=== PATIENT | female | born 1945 | race Caucasian/White ===

== ENCOUNTER 2021-07-03 13:18 | Inpatient (IN) | payer MEDICARE, BC ==
[~2021-07-03] VITALS: Ht 160 cm; Wt 51.7 kg
[2021-07-03 16:20] VITALS: BP 109/72
[2021-07-03] MEDS ORDERED: ACETAMINOPHEN 325 MG TABLET PO PRN (20:15)
[2021-07-03] MEDS: CycloSPORINE 0.05% 0.4 ML OPHTHALMIC EMULSION OU SCH ×2 (21:00→21:26)
[2021-07-03] MEDS: ETHYL ALCOHOL 62% ANTISEPTIC NASAL INHALANT 0.6 ML AMPUL NASAL SCH ×2 (21:00→21:27)
[2021-07-03] MEDS: SENNA 187 MG TABLET PO SCH (21:25)
[2021-07-03] MEDS: HYPROMELLOSE 0.5% 15 ML OPHTHALMIC SOLUTION OU SCH (21:25)
[2021-07-03] MEDS: DOCUSATE SODIUM 100 MG CAPSULE PO SCH (21:26)
[2021-07-03] MEDS: DOXEPIN HCL 10 MG CAPSULE PO SCH (21:26)
[2021-07-03] MEDS: LOVASTATIN 20 MG TABLET PO SCH (21:27)
[2021-07-04 01:37] VITALS: BP 122/67
[2021-07-04] MEDS: HYPROMELLOSE 0.5% 15 ML OPHTHALMIC SOLUTION OU SCH ×10 (03:00→21:43)
[2021-07-04] MEDS: LEVOTHYROXINE SODIUM 88 MCG TABLET PO SCH (06:26)
[2021-07-04] MEDS: MINOCYCLINE HCL 100 MG CAPSULE PO SCH ×2 (07:11→17:32)
[2021-07-04 07:21] LABS: BASOPHILS % (AUTO) 0.4 % (0.0-2.0); EOSINOPHILS % (AUTO) 5.1 % (1.0-6.0); HEMATOCRIT 37.7 % (36-46); HEMOGLOBIN 12.8 g/dL (12.0-16.0); LYMPHOCYTES # (AUTO) 1.7 K/uL (1.0-4.8); LYMPHOCYTES % (AUTO) 19.4 % (22.0-44.0); MEAN CORPUSCULAR HEMOGLOBIN 30.6 pg (26.0-34.0); MEAN CORPUSCULAR HGB CONC 33.9 G/dL (31.0-37.0); MEAN CORPUSCULAR VOLUME 90 fL (80-100); MONOCYTES # (AUTO) 0.6 K/uL (0.1-1.0); MONOCYTES % (AUTO) 6.2 % (2.0-9.0); NEUTROPHILS # (AUTO) 6.1 K/uL (1.8-7.7); NEUTROPHILS % (AUTO) 68.9 % (40.0-70.0); PLATELET COUNT (AUTO) 236 K/uL (150-450); RED BLOOD CELL COUNT(AUTO) 4.18 MIL/uL (4.00-5.20); RED CELL DISTRIBUTION WIDTH 13.2 % (11.5-14.5)
[2021-07-04 07:27] LABS: ALANINE AMINOTRANSFERASE 145 U/L (12-78); ALBUMIN 2.7 g/dL (3.4-5.0); ALKALINE PHOSPHATASE 113 U/L (46-116); ANION GAP 3 mmol/L (8-16); ASPARTATE AMINOTRANSFERASE 94 U/L (15-37); BILIRUBIN,TOTAL 0.3 mg/dL (0.1-1.0); CALCIUM, TOTAL 8.9 mg/dL (8.8-10.5); CARBON DIOXIDE 33 mmol/L (22-29); CHLORIDE 101 mmol/L (98-107); CREATININE 0.61 mg/dL (0.60-1.30); GLUCOSE,RANDOM 103 mg/dL (70-110); POTASSIUM 3.9 mmol/L (3.5-5.1); SODIUM SERUM 137 mmol/L (136-145); TOTAL PROTEIN, SERUM 6.2 g/dL (6.4-8.2); UREA NITROGEN, BLOOD 8 mg/dL (7-18)
[2021-07-04 07:36] LABS: GLOMERULAR FILTR. RATE CALC > 60 mL/min (>60)
[2021-07-04 08:05] VITALS: BP 143/61
[2021-07-04] MEDS: DOCUSATE SODIUM 100 MG CAPSULE PO SCH ×2 (08:50→19:01)
[2021-07-04] MEDS: ASCORBIC ACID 500 MG TABLET PO SCH (08:50)
[2021-07-04] MEDS: CALCIUM CIT/VITAMIN D3 200 MG-250 UNITS TABLET PO SCH (08:50)
[2021-07-04] MEDS: LISINOPRIL 10 MG TABLET PO SCH (08:51)
[2021-07-04] MEDS: ETHYL ALCOHOL 62% ANTISEPTIC NASAL INHALANT 0.6 ML AMPUL NASAL SCH ×3 (08:51→19:23)
[2021-07-04] MEDS: RIVAROXABAN 20 MG TABLET PO SCH (08:51)
[2021-07-04] MEDS: MULTIVITAMINS WITH MINERALS, THERAPEUTIC TABLET PO SCH (08:51)
[2021-07-04] MEDS ORDERED: CycloSPORINE 0.05% 0.4 ML OPHTHALMIC EMULSION OU SCH (09:00)
[2021-07-04] MEDS ORDERED: FEXOFENADINE HCL 60 MG TABLET PO SCH (09:00)
[2021-07-04] MEDS ORDERED: OMEGA-3/DHA/EPA/FISH OIL 1,000 MG CAPSULE PO SCH (09:00)
[2021-07-04] MEDS: ESCITALOPRAM OXALATE 10 MG TABLET PO SCH (12:20)
[2021-07-04 15:49] VITALS: BP 153/75
[2021-07-04] MEDS: DOXEPIN HCL 10 MG CAPSULE PO SCH (19:01)
[2021-07-04] MEDS: CycloSPORINE 0.05% 0.4 ML OPHTHALMIC EMULSION OU SCH (19:01)
[2021-07-04] MEDS: TAMSULOSIN HCL 0.4 MG CAPSULE PO SCH (19:01)
[2021-07-04] MEDS: SENNA 187 MG TABLET PO SCH (19:01)
[2021-07-04] MEDS: LOVASTATIN 20 MG TABLET PO SCH (19:01)
[2021-07-04] MEDS: MELATONIN 3 MG TABLET PO PRN (21:43)
[2021-07-05] MEDS: HYPROMELLOSE 0.5% 15 ML OPHTHALMIC SOLUTION OU SCH ×11 (03:00→21:00)
[2021-07-05] MEDS ORDERED: MINO100C66 PO (03:15)
[2021-07-05] MEDS ORDERED: LOVA20TA73 PO (03:15)
[2021-07-05] MEDS ORDERED: LEVO88TA4 PO (03:15)
[2021-07-05] MEDS ORDERED: DOXE10 PO (03:15)
[2021-07-05] MEDS ORDERED: CYCL05OE OU (03:15)
[2021-07-05 03:43] VITALS: BP 130/67
[2021-07-05] MEDS: LEVOTHYROXINE SODIUM 88 MCG TABLET PO SCH (06:10)
[2021-07-05 08:15] VITALS: BP 113/57
[2021-07-05] MEDS: ETHYL ALCOHOL 62% ANTISEPTIC NASAL INHALANT 0.6 ML AMPUL NASAL SCH ×2 (08:23→20:40)
[2021-07-05] MEDS: LISINOPRIL 10 MG TABLET PO SCH (08:24)
[2021-07-05] MEDS: MINOCYCLINE HCL 100 MG CAPSULE PO SCH ×2 (08:24→18:45)
[2021-07-05] MEDS: RIVAROXABAN 20 MG TABLET PO SCH (08:24)
[2021-07-05] MEDS: ASCORBIC ACID 500 MG TABLET PO SCH (08:24)
[2021-07-05] MEDS: CALCIUM CIT/VITAMIN D3 200 MG-250 UNITS TABLET PO SCH (08:24)
[2021-07-05] MEDS: DOCUSATE SODIUM 100 MG CAPSULE PO SCH ×3 (08:25→21:00)
[2021-07-05] MEDS: ESCITALOPRAM OXALATE 10 MG TABLET PO SCH (08:25)
[2021-07-05] MEDS: MULTIVITAMINS WITH MINERALS, THERAPEUTIC TABLET PO SCH (08:25)
[2021-07-05] MEDS: FEXOFENADINE HCL 60 MG TABLET PO SCH ×3 (08:39→21:00)
[2021-07-05] MEDS: FAMOTIDINE 20 MG TABLET PO SCH ×3 (09:37→21:00)
[2021-07-05 16:53] VITALS: BP 129/63
[2021-07-05] MEDS: MELATONIN 3 MG TABLET PO PRN (20:40)
[2021-07-05] MEDS: SENNA 187 MG TABLET PO SCH ×2 (20:40→21:00)
[2021-07-05] MEDS: TAMSULOSIN HCL 0.4 MG CAPSULE PO SCH (20:40)
[2021-07-05] MEDS: DOXEPIN HCL 10 MG CAPSULE PO SCH ×2 (20:41→21:00)
[2021-07-05] MEDS: LOVASTATIN 20 MG TABLET PO SCH (20:41)
[2021-07-05] MEDS: CycloSPORINE 0.05% 0.4 ML OPHTHALMIC EMULSION OU SCH (21:00)
[2021-07-06 03:30] VITALS: BP 131/57
[2021-07-06] MEDS: HYPROMELLOSE 0.5% 15 ML OPHTHALMIC SOLUTION OU SCH ×5 (03:31→13:20)
[2021-07-06] MEDS: LEVOTHYROXINE SODIUM 88 MCG TABLET PO SCH (05:37)
[2021-07-06 08:30] VITALS: BP 124/68
[2021-07-06] MEDS: ETHYL ALCOHOL 62% ANTISEPTIC NASAL INHALANT 0.6 ML AMPUL NASAL SCH ×2 (09:04→18:35)
[2021-07-06] MEDS: ASCORBIC ACID 500 MG TABLET PO SCH (09:05)
[2021-07-06] MEDS: CALCIUM CIT/VITAMIN D3 200 MG-250 UNITS TABLET PO SCH (09:05)
[2021-07-06] MEDS: LISINOPRIL 10 MG TABLET PO SCH (09:05)
[2021-07-06] MEDS: DOCUSATE SODIUM 100 MG CAPSULE PO SCH ×2 (09:05→18:37)
[2021-07-06] MEDS: FEXOFENADINE HCL 60 MG TABLET PO SCH ×2 (09:05→18:36)
[2021-07-06] MEDS: MULTIVITAMINS WITH MINERALS, THERAPEUTIC TABLET PO SCH (09:05)
[2021-07-06] MEDS: MINOCYCLINE HCL 100 MG CAPSULE PO SCH ×2 (09:05→16:25)
[2021-07-06] MEDS: ESCITALOPRAM OXALATE 10 MG TABLET PO SCH (09:06)
[2021-07-06] MEDS: FAMOTIDINE 20 MG TABLET PO SCH ×2 (09:06→18:36)
[2021-07-06] MEDS: RIVAROXABAN 20 MG TABLET PO SCH (10:09)
[2021-07-06] MEDS ORDERED: *PATIENT'S OWN MED [ENTER DRUG, DOSE, FREQUENCY IN COMMENTS] CLINICAL ONE (14:00)
[2021-07-06] MEDS: [UNRECOGNIZED DRUG - OTHER] OU SCH ×2 (16:24→21:30)
[2021-07-06 16:30] VITALS: BP 116/69
[2021-07-06 18:13] LABS: APPEARANCE,URINE CLEAR (CLEAR); BILIRUBIN,URINE NEGATIVE (NEGATIVE); GLUCOSE, URINE (UA) NEGATIVE (NEGATIVE); KETONES,URINE NEGATIVE (NEGATIVE); LEUKOCYTE ESTERASE ,URINE MODERATE (NEGATIVE); NITRATE,URINE NEGATIVE (NEGATIVE); OCCULT BLOOD,URINE SMALL (NEGATIVE); PROTEIN,URINE NEGATIVE (NEGATIVE); UROBILINOGEN,URINE 0.2 mg/dL (<=1.0)
[2021-07-06 18:26] LABS: BACTERIA,URINE None Seen /HPF (None Seen); SQUAMOUS EPITHELIAL CELL,UR Few /LPF (None Seen)
[2021-07-06] MEDS: LOVASTATIN 20 MG TABLET PO SCH (18:36)
[2021-07-06] MEDS: TAMSULOSIN HCL 0.4 MG CAPSULE PO SCH (18:36)
[2021-07-06] MEDS: SENNA 187 MG TABLET PO SCH (18:37)
[2021-07-06] MEDS: CycloSPORINE 0.05% 0.4 ML OPHTHALMIC EMULSION OU SCH (18:49)
[2021-07-06] MEDS: TraZODone HCL 50 MG TABLET PO SCH (21:29)
[2021-07-07] VITALS: BP 149/66
[2021-07-07] MEDS: LEVOTHYROXINE SODIUM 88 MCG TABLET PO SCH (06:17)
[2021-07-07] MEDS: LISINOPRIL 10 MG TABLET PO SCH (08:09)
[2021-07-07] MEDS: DOCUSATE SODIUM 100 MG CAPSULE PO SCH ×2 (08:09→19:12)
[2021-07-07] MEDS: ASCORBIC ACID 500 MG TABLET PO SCH (08:09)
[2021-07-07] MEDS: CALCIUM CIT/VITAMIN D3 200 MG-250 UNITS TABLET PO SCH (08:09)
[2021-07-07] MEDS: FAMOTIDINE 20 MG TABLET PO SCH ×2 (08:10→19:20)
[2021-07-07] MEDS: MINOCYCLINE HCL 100 MG CAPSULE PO SCH ×2 (08:10→16:55)
[2021-07-07] MEDS: MULTIVITAMINS WITH MINERALS, THERAPEUTIC TABLET PO SCH (08:10)
[2021-07-07] MEDS: FEXOFENADINE HCL 60 MG TABLET PO SCH ×2 (08:11→19:21)
[2021-07-07] MEDS: RIVAROXABAN 20 MG TABLET PO SCH (08:11)
[2021-07-07] MEDS: ESCITALOPRAM OXALATE 10 MG TABLET PO SCH (08:11)
[2021-07-07] MEDS: ETHYL ALCOHOL 62% ANTISEPTIC NASAL INHALANT 0.6 ML AMPUL NASAL SCH ×2 (08:12→19:22)
[2021-07-07] MEDS: [UNRECOGNIZED DRUG - OTHER] OU SCH ×5 (08:21→19:12)
[2021-07-07 09:11] VITALS: BP 152/76
[2021-07-07 11:09] VITALS: BP 124/74
[2021-07-07 16:03] VITALS: BP 144/86
[2021-07-07] MEDS: LOVASTATIN 20 MG TABLET PO SCH (19:12)
[2021-07-07] MEDS: TraZODone HCL 50 MG TABLET PO SCH (19:13)
[2021-07-07] MEDS: TAMSULOSIN HCL 0.4 MG CAPSULE PO SCH (19:13)
[2021-07-07] MEDS: SENNA 187 MG TABLET PO SCH (19:13)
[2021-07-07] MEDS: CycloSPORINE 0.05% 0.4 ML OPHTHALMIC EMULSION OU SCH (19:21)
[2021-07-08] MEDS: LEVOTHYROXINE SODIUM 88 MCG TABLET PO SCH (06:14)
[2021-07-08 06:31] VITALS: BP 130/62
[2021-07-08 08:15] VITALS: BP 117/60
[2021-07-08] MEDS: MINOCYCLINE HCL 100 MG CAPSULE PO SCH ×2 (08:38→19:17)
[2021-07-08] MEDS: FEXOFENADINE HCL 60 MG TABLET PO SCH ×2 (08:39→20:24)
[2021-07-08] MEDS: ETHYL ALCOHOL 62% ANTISEPTIC NASAL INHALANT 0.6 ML AMPUL NASAL SCH ×2 (08:39→20:24)
[2021-07-08] MEDS: CALCIUM CIT/VITAMIN D3 200 MG-250 UNITS TABLET PO SCH (08:40)
[2021-07-08] MEDS: DOCUSATE SODIUM 100 MG CAPSULE PO SCH ×2 (08:41→20:24)
[2021-07-08] MEDS: ESCITALOPRAM OXALATE 10 MG TABLET PO SCH (08:43)
[2021-07-08] MEDS: FAMOTIDINE 20 MG TABLET PO SCH ×2 (08:44→19:17)
[2021-07-08] MEDS: MULTIVITAMINS WITH MINERALS, THERAPEUTIC TABLET PO SCH (08:45)
[2021-07-08] MEDS: ASCORBIC ACID 500 MG TABLET PO SCH (08:47)
[2021-07-08] MEDS: RIVAROXABAN 20 MG TABLET PO SCH (08:50)
[2021-07-08] MEDS: LISINOPRIL 10 MG TABLET PO SCH ×2 (08:51→09:00)
[2021-07-08] MEDS: [UNRECOGNIZED DRUG - OTHER] OU SCH ×4 (09:55→20:24)
[2021-07-08] MEDS: SENNA 187 MG TABLET PO SCH (19:16)
[2021-07-08] MEDS: TAMSULOSIN HCL 0.4 MG CAPSULE PO SCH (19:17)
[2021-07-08] MEDS: TraZODone HCL 50 MG TABLET PO SCH (19:17)
[2021-07-08] MEDS: LOVASTATIN 20 MG TABLET PO SCH (19:17)
[2021-07-08 19:20] VITALS: BP 125/56
[2021-07-08] MEDS: CycloSPORINE 0.05% 0.4 ML OPHTHALMIC EMULSION OU SCH (19:20)
[2021-07-09] VITALS: BP 127/70
[2021-07-09] MEDS: LEVOTHYROXINE SODIUM 88 MCG TABLET PO SCH (06:02)
[2021-07-09 08:12] VITALS: BP 123/55
[2021-07-09] MEDS: FAMOTIDINE 20 MG TABLET PO SCH ×2 (08:28→19:27)
[2021-07-09] MEDS: ESCITALOPRAM OXALATE 10 MG TABLET PO SCH (08:28)
[2021-07-09] MEDS: MINOCYCLINE HCL 100 MG CAPSULE PO SCH ×2 (08:28→18:01)
[2021-07-09] MEDS: LISINOPRIL 10 MG TABLET PO SCH (08:28)
[2021-07-09] MEDS: FEXOFENADINE HCL 60 MG TABLET PO SCH ×2 (08:29→19:18)
[2021-07-09] MEDS: RIVAROXABAN 20 MG TABLET PO SCH (08:29)
[2021-07-09] MEDS: CALCIUM CIT/VITAMIN D3 200 MG-250 UNITS TABLET PO SCH (08:35)
[2021-07-09] MEDS: MULTIVITAMINS WITH MINERALS, THERAPEUTIC TABLET PO SCH (08:35)
[2021-07-09] MEDS: DOCUSATE SODIUM 100 MG CAPSULE PO SCH ×2 (08:35→19:18)
[2021-07-09] MEDS: ASCORBIC ACID 500 MG TABLET PO SCH (08:38)
[2021-07-09] MEDS: [UNRECOGNIZED DRUG - OTHER] OU SCH ×4 (08:39→19:18)
[2021-07-09] MEDS: ETHYL ALCOHOL 62% ANTISEPTIC NASAL INHALANT 0.6 ML AMPUL NASAL SCH ×2 (08:44→20:27)
[2021-07-09] MEDS: NYSTATIN 500,000 UNITS/5 ML SUSPENSION UDCUP PO SCH (14:58)
[2021-07-09 15:00] VITALS: BP 105/61
[2021-07-09] MEDS: LOVASTATIN 20 MG TABLET PO SCH (19:16)
[2021-07-09] MEDS: TAMSULOSIN HCL 0.4 MG CAPSULE PO SCH (19:16)
[2021-07-09] MEDS: TraZODone HCL 50 MG TABLET PO SCH (19:17)
[2021-07-09] MEDS: SENNA 187 MG TABLET PO SCH (19:18)
[2021-07-09] MEDS: CycloSPORINE 0.05% 0.4 ML OPHTHALMIC EMULSION OU SCH (20:27)
[2021-07-10 06:12] VITALS: BP 143/57
[2021-07-10] MEDS: LEVOTHYROXINE SODIUM 88 MCG TABLET PO SCH (06:27)
[2021-07-10 08:00] VITALS: BP 128/58
[2021-07-10 08:14] LABS: ANION GAP 2 mmol/L (8-16); CALCIUM, TOTAL 9.2 mg/dL (8.8-10.5); CARBON DIOXIDE 34 mmol/L (22-29); CHLORIDE 99 mmol/L (98-107); CREATININE 0.65 mg/dL (0.60-1.30); GLOMERULAR FILTR. RATE CALC > 60 mL/min (>60); GLUCOSE,RANDOM 107 mg/dL (70-110); POTASSIUM 4.4 mmol/L (3.5-5.1); SODIUM SERUM 135 mmol/L (136-145); UREA NITROGEN, BLOOD 13 mg/dL (7-18)
[2021-07-10] MEDS ORDERED: BISACODYL 5 MG EC TABLET PO PRN (08:30)
[2021-07-10] MEDS: FEXOFENADINE HCL 60 MG TABLET PO SCH ×2 (08:59→19:32)
[2021-07-10] MEDS: RIVAROXABAN 20 MG TABLET PO SCH (09:00)
[2021-07-10] MEDS: NYSTATIN 500,000 UNITS/5 ML SUSPENSION UDCUP PO SCH ×3 (09:00→16:31)
[2021-07-10] MEDS: CALCIUM CIT/VITAMIN D3 200 MG-250 UNITS TABLET PO SCH (09:00)
[2021-07-10] MEDS: ASCORBIC ACID 500 MG TABLET PO SCH (09:00)
[2021-07-10] MEDS: ESCITALOPRAM OXALATE 10 MG TABLET PO SCH (09:00)
[2021-07-10] MEDS: DOCUSATE SODIUM 250 MG CAPSULE PO SCH ×2 (09:00→19:32)
[2021-07-10] MEDS: TAMSULOSIN HCL 0.4 MG CAPSULE PO SCH ×2 (09:01→19:32)
[2021-07-10] MEDS: MINOCYCLINE HCL 100 MG CAPSULE PO SCH ×2 (09:01→16:30)
[2021-07-10] MEDS: FAMOTIDINE 20 MG TABLET PO SCH ×2 (09:01→19:32)
[2021-07-10] MEDS: LISINOPRIL 10 MG TABLET PO SCH (09:01)
[2021-07-10] MEDS: MULTIVITAMINS WITH MINERALS, THERAPEUTIC TABLET PO SCH (09:01)
[2021-07-10] MEDS: ETHYL ALCOHOL 62% ANTISEPTIC NASAL INHALANT 0.6 ML AMPUL NASAL SCH ×2 (09:02→19:33)
[2021-07-10] MEDS: [UNRECOGNIZED DRUG - OTHER] OU SCH ×5 (09:02→19:33)
[2021-07-10 16:30] VITALS: BP 124/61
[2021-07-10] MEDS: MAGNESIUM HYDROXIDE SUSPENSION 30 ML UDCUP PO PRN (16:31)
[2021-07-10] MEDS: CycloSPORINE 0.05% 0.4 ML OPHTHALMIC EMULSION OU SCH (19:32)
[2021-07-10] MEDS: TraZODone HCL 50 MG TABLET PO SCH (19:32)
[2021-07-10] MEDS: SENNA 187 MG TABLET PO SCH (19:32)
[2021-07-10] MEDS: LOVASTATIN 20 MG TABLET PO SCH (19:32)
[2021-07-11] MEDS: LEVOTHYROXINE SODIUM 88 MCG TABLET PO SCH (06:03)
[2021-07-11 06:17] VITALS: BP 125/68
[2021-07-11 08:15] VITALS: BP 137/50
[2021-07-11] MEDS: MINOCYCLINE HCL 100 MG CAPSULE PO SCH ×2 (08:41→16:20)
[2021-07-11] MEDS: FEXOFENADINE HCL 60 MG TABLET PO SCH ×2 (08:42→19:00)
[2021-07-11] MEDS: RIVAROXABAN 20 MG TABLET PO SCH (08:42)
[2021-07-11] MEDS: ESCITALOPRAM OXALATE 10 MG TABLET PO SCH (08:43)
[2021-07-11] MEDS: [UNRECOGNIZED DRUG - OTHER] OU SCH ×4 (08:43→19:52)
[2021-07-11] MEDS: FAMOTIDINE 20 MG TABLET PO SCH ×2 (08:44→19:00)
[2021-07-11] MEDS: TAMSULOSIN HCL 0.4 MG CAPSULE PO SCH ×2 (08:44→19:00)
[2021-07-11] MEDS: CALCIUM CIT/VITAMIN D3 200 MG-250 UNITS TABLET PO SCH (08:45)
[2021-07-11] MEDS: LISINOPRIL 10 MG TABLET PO SCH (08:45)
[2021-07-11] MEDS: MULTIVITAMINS WITH MINERALS, THERAPEUTIC TABLET PO SCH (08:45)
[2021-07-11] MEDS: DOCUSATE SODIUM 250 MG CAPSULE PO SCH ×2 (08:46→19:00)
[2021-07-11] MEDS: NYSTATIN 500,000 UNITS/5 ML SUSPENSION UDCUP PO SCH ×3 (08:47→16:12)
[2021-07-11] MEDS: ASCORBIC ACID 500 MG TABLET PO SCH (09:21)
[2021-07-11] MEDS: ETHYL ALCOHOL 62% ANTISEPTIC NASAL INHALANT 0.6 ML AMPUL NASAL SCH ×2 (09:21→19:01)
[2021-07-11] MEDS ORDERED: GADOTERATE MEGLUMINE 10 MMOL/20 ML VIAL IVP ONE (15:50)
[2021-07-11 15:51] VITALS: BP 90/52
[2021-07-11] MEDS: MAGNESIUM HYDROXIDE SUSPENSION 30 ML UDCUP PO PRN (17:46)
[2021-07-11] MEDS: LOVASTATIN 20 MG TABLET PO SCH (19:00)
[2021-07-11] MEDS: SENNA 187 MG TABLET PO SCH (19:00)
[2021-07-11] MEDS: CycloSPORINE 0.05% 0.4 ML OPHTHALMIC EMULSION OU SCH (19:06)
[2021-07-11] MEDS ORDERED: TraZODone HCL 50 MG TABLET PO SCH (21:00)
[2021-07-12] VITALS: BP 106/54
[2021-07-12] MEDS: NYSTATIN 500,000 UNITS/5 ML SUSPENSION UDCUP PO SCH ×4 (00:14→23:05)
[2021-07-12] MEDS: LEVOTHYROXINE SODIUM 88 MCG TABLET PO SCH (05:43)
[2021-07-12] MEDS: FEXOFENADINE HCL 60 MG TABLET PO SCH (07:34)
[2021-07-12] MEDS: LISINOPRIL 10 MG TABLET PO SCH (07:34)
[2021-07-12] MEDS: DOCUSATE SODIUM 250 MG CAPSULE PO SCH ×2 (07:34→21:00)
[2021-07-12] MEDS: CALCIUM CIT/VITAMIN D3 200 MG-250 UNITS TABLET PO SCH (07:35)
[2021-07-12] MEDS: FAMOTIDINE 20 MG TABLET PO SCH ×2 (07:35→21:55)
[2021-07-12] MEDS: ESCITALOPRAM OXALATE 10 MG TABLET PO SCH (07:35)
[2021-07-12] MEDS: ASCORBIC ACID 500 MG TABLET PO SCH (07:35)
[2021-07-12] MEDS: TAMSULOSIN HCL 0.4 MG CAPSULE PO SCH ×2 (07:35→21:55)
[2021-07-12] MEDS: MULTIVITAMINS WITH MINERALS, THERAPEUTIC TABLET PO SCH (07:35)
[2021-07-12] MEDS: [UNRECOGNIZED DRUG - OTHER] OU SCH ×4 (07:36→22:16)
[2021-07-12] MEDS: MINOCYCLINE HCL 100 MG CAPSULE PO SCH ×2 (07:36→17:56)
[2021-07-12] MEDS: ETHYL ALCOHOL 62% ANTISEPTIC NASAL INHALANT 0.6 ML AMPUL NASAL SCH ×2 (07:36→21:00)
[2021-07-12] MEDS: RIVAROXABAN 20 MG TABLET PO SCH (07:36)
[2021-07-12] MEDS: 0.9% SODIUM CHLORIDE 10 ML SYRINGE IVP SCH ×3 (07:42→23:05)
[2021-07-12 08:12] VITALS: BP 113/56
[2021-07-12] MEDS: MODAFINIL 100 MG TABLET PO SCH (10:12)
[2021-07-12 11:00] VITALS: BP_SYST 85; BP_SYST 92; BP_DIAS 46
[2021-07-12] MEDS ORDERED: SODIUM CHLORIDE 0.9% 1,000 ML IV ONE (11:15)
[2021-07-12 11:55] LABS: BASOPHILS % (AUTO) 0.8 % (0.0-2.0); EOSINOPHILS % (AUTO) 4.7 % (1.0-6.0); HEMATOCRIT 36.8 % (36-46); HEMOGLOBIN 12.4 g/dL (12.0-16.0); LYMPHOCYTES # (AUTO) 1.6 K/uL (1.0-4.8); LYMPHOCYTES % (AUTO) 35.7 % (22.0-44.0); MEAN CORPUSCULAR HEMOGLOBIN 30.4 pg (26.0-34.0); MEAN CORPUSCULAR HGB CONC 33.6 G/dL (31.0-37.0); MEAN CORPUSCULAR VOLUME 91 fL (80-100); MONOCYTES # (AUTO) 0.4 K/uL (0.1-1.0); NEUTROPHILS # (AUTO) 2.2 K/uL (1.8-7.7); NEUTROPHILS % (AUTO) 49.8 % (40.0-70.0); PLATELET COUNT (AUTO) 310 K/uL (150-450); RED BLOOD CELL COUNT(AUTO) 4.07 MIL/uL (4.00-5.20); RED CELL DISTRIBUTION WIDTH 13.2 % (11.5-14.5)
[2021-07-12 12:00] VITALS: BP 126/61
[2021-07-12 12:01] LABS: ANION GAP 8 mmol/L (8-16); CALCIUM, TOTAL 9.1 mg/dL (8.8-10.5); CARBON DIOXIDE 31 mmol/L (22-29); CHLORIDE 99 mmol/L (98-107); GLUCOSE,RANDOM 109 mg/dL (70-110); POTASSIUM 4.3 mmol/L (3.5-5.1); SODIUM SERUM 138 mmol/L (136-145); UREA NITROGEN, BLOOD 17 mg/dL (7-18)
[2021-07-12 12:02] LABS: GLOMERULAR FILTR. RATE CALC > 60 mL/min (>60)
[2021-07-12] MEDS ORDERED: LACTULOSE 20 GM/30 ML SOLUTION UDCUP PO PRN (12:30)
[2021-07-12 16:08] VITALS: BP 106/61
[2021-07-12] MEDS: DOCUSATE SODIUM 283 MG/5 ML MINI-ENEMA PR PRN (19:17)
[2021-07-12] MEDS: CycloSPORINE 0.05% 0.4 ML OPHTHALMIC EMULSION OU SCH ×2 (21:00→22:42)
[2021-07-12] MEDS: SENNA 187 MG TABLET PO SCH (21:00)
[2021-07-12] MEDS: LOVASTATIN 20 MG TABLET PO SCH (21:00)
[2021-07-13] VITALS: BP 141/69
[2021-07-13] MEDS: LEVOTHYROXINE SODIUM 88 MCG TABLET PO SCH (06:02)
[2021-07-13] MEDS: CALCIUM CIT/VITAMIN D3 200 MG-250 UNITS TABLET PO SCH (08:36)
[2021-07-13] MEDS: MINOCYCLINE HCL 100 MG CAPSULE PO SCH ×2 (08:36→22:09)
[2021-07-13] MEDS: NYSTATIN 500,000 UNITS/5 ML SUSPENSION UDCUP PO SCH ×2 (08:36→16:26)
[2021-07-13] MEDS: [UNRECOGNIZED DRUG - OTHER] OU SCH ×4 (08:37→22:10)
[2021-07-13] MEDS: DOCUSATE SODIUM 250 MG CAPSULE PO SCH (08:37)
[2021-07-13] MEDS: RIVAROXABAN 20 MG TABLET PO SCH (08:37)
[2021-07-13] MEDS: FAMOTIDINE 20 MG TABLET PO SCH (08:37)
[2021-07-13] MEDS: MULTIVITAMINS WITH MINERALS, THERAPEUTIC TABLET PO SCH (08:37)
[2021-07-13] MEDS: TAMSULOSIN HCL 0.4 MG CAPSULE PO SCH (08:38)
[2021-07-13] MEDS: ASCORBIC ACID 500 MG TABLET PO SCH (08:38)
[2021-07-13] MEDS: ETHYL ALCOHOL 62% ANTISEPTIC NASAL INHALANT 0.6 ML AMPUL NASAL SCH ×2 (08:38→21:00)
[2021-07-13] MEDS: 0.9% SODIUM CHLORIDE 10 ML SYRINGE IVP SCH ×2 (08:39→16:28)
[2021-07-13] MEDS: MODAFINIL 100 MG TABLET PO SCH (08:41)
[2021-07-13 09:41] VITALS: BP 125/60
[2021-07-13 12:24] LABS: BASOPHILS % (AUTO) 0.5 % (0.0-2.0); EOSINOPHILS % (AUTO) 1.7 % (1.0-6.0); HEMATOCRIT 38.7 % (36-46); HEMOGLOBIN 13.1 g/dL (12.0-16.0); LYMPHOCYTES # (AUTO) 1.7 K/uL (1.0-4.8); LYMPHOCYTES % (AUTO) 21.7 % (22.0-44.0); MEAN CORPUSCULAR HEMOGLOBIN 30.7 pg (26.0-34.0); MEAN CORPUSCULAR HGB CONC 33.9 G/dL (31.0-37.0); MEAN CORPUSCULAR VOLUME 90 fL (80-100); MONOCYTES # (AUTO) 0.5 K/uL (0.1-1.0); MONOCYTES % (AUTO) 6.1 % (2.0-9.0); NEUTROPHILS # (AUTO) 5.3 K/uL (1.8-7.7); PLATELET COUNT (AUTO) 326 K/uL (150-450); RED BLOOD CELL COUNT(AUTO) 4.28 MIL/uL (4.00-5.20); RED CELL DISTRIBUTION WIDTH 13.1 % (11.5-14.5)
[2021-07-13 12:44] LABS: ANION GAP 9 mmol/L (8-16); CALCIUM, TOTAL 9.3 mg/dL (8.8-10.5); CARBON DIOXIDE 30 mmol/L (22-29); CHLORIDE 99 mmol/L (98-107); GLOMERULAR FILTR. RATE CALC > 60 mL/min (>60); GLUCOSE,RANDOM 100 mg/dL (70-110); POTASSIUM 4.1 mmol/L (3.5-5.1); SODIUM SERUM 138 mmol/L (136-145); UREA NITROGEN, BLOOD 13 mg/dL (7-18)
[2021-07-13] MEDS ORDERED: LACTULOSE 20 GM/30 ML SOLUTION UDCUP NG PRN (12:45)
[2021-07-13 15:57] VITALS: BP 144/68
[2021-07-13] MEDS: THIAMINE 500 MG in SODIUM CHLORIDE 0.9% 100 ML IV SCH (17:21)
[2021-07-13] MEDS ORDERED: SODIUM CHLORIDE 0.9% 100 ML ONE (17:22)
[2021-07-13 19:11] LABS: GLUCOMETER DEV NAME(LOC) 2WR.2B; GLUCOSE,POINT OF CARE 94 MG/DL (70-110)
[2021-07-13] MEDS ORDERED: BISACODYL 5 MG EC TABLET NG PRN (21:44)
[2021-07-13] MEDS ORDERED: MAGNESIUM HYDROXIDE SUSPENSION 30 ML UDCUP NG PRN (21:45)
[2021-07-13] MEDS: LOVASTATIN 20 MG TABLET NG SCH (22:08)
[2021-07-13] MEDS: DOCUSATE SODIUM 100 MG/10 ML LIQUID UDCUP NG SCH (22:08)
[2021-07-13] MEDS: FAMOTIDINE 20 MG TABLET NG SCH (22:08)
[2021-07-13] MEDS: SENNOSIDES 8.8 MG/5 ML SYRUP ORAL.SYG NG SCH (22:09)
[2021-07-13] MEDS: TAMSULOSIN HCL 0.4 MG CAPSULE NG SCH (22:35)
[2021-07-13] MEDS: CycloSPORINE 0.05% 0.4 ML OPHTHALMIC EMULSION OU SCH (22:39)
[2021-07-14] VITALS: BP 148/66
[2021-07-14] MEDS ORDERED: ACETAMINOPHEN 650 MG/20.3 ML SOLUTION UDCUP NG PRN (00:15)
[2021-07-14] MEDS: 0.9% SODIUM CHLORIDE 10 ML SYRINGE IVP SCH ×4 (00:41→23:57)
[2021-07-14] MEDS: NYSTATIN 500,000 UNITS/5 ML SUSPENSION UDCUP NG SCH ×4 (00:41→23:58)
[2021-07-14] MEDS: LEVOTHYROXINE SODIUM 88 MCG TABLET NG SCH (06:32)
[2021-07-14 08:00] VITALS: BP 134/66
[2021-07-14] MEDS ORDERED: TAMSULOSIN HCL 0.4 MG CAPSULE NG SCH (09:00)
[2021-07-14] MEDS ORDERED: MODAFINIL 100 MG TABLET PO SCH (09:00)
[2021-07-14] MEDS: DOCUSATE SODIUM 100 MG/10 ML LIQUID UDCUP NG SCH ×2 (09:31→20:09)
[2021-07-14] MEDS: MULTIVITAMINS WITH MINERALS, THERAPEUTIC 15 ML UDCUP NG SCH (09:32)
[2021-07-14] MEDS: [UNRECOGNIZED DRUG - OTHER] OU SCH ×4 (09:32→20:12)
[2021-07-14] MEDS: CALCIUM CIT/VITAMIN D3 200 MG-250 UNITS TABLET NG SCH (09:33)
[2021-07-14] MEDS: ETHYL ALCOHOL 62% ANTISEPTIC NASAL INHALANT 0.6 ML AMPUL NASAL SCH ×2 (09:33→20:08)
[2021-07-14] MEDS: ASCORBIC ACID 500 MG TABLET NG SCH (09:34)
[2021-07-14] MEDS: RIVAROXABAN 20 MG TABLET NG SCH (09:34)
[2021-07-14] MEDS: TAMSULOSIN HCL 0.4 MG CAPSULE NG SCH ×2 (09:34→20:10)
[2021-07-14] MEDS: FAMOTIDINE 20 MG TABLET NG SCH ×2 (09:34→20:11)
[2021-07-14] MEDS: MODAFINIL 100 MG TABLET NG SCH (09:35)
[2021-07-14 16:05] VITALS: BP 134/66
[2021-07-14 17:27] LABS: APPEARANCE,URINE CLOUDY (CLEAR); BILIRUBIN,URINE NEGATIVE (NEGATIVE); GLUCOSE, URINE (UA) NEGATIVE (NEGATIVE); KETONES,URINE 15 mg/dL (NEGATIVE); LEUKOCYTE ESTERASE ,URINE MODERATE (NEGATIVE); NITRATE,URINE NEGATIVE (NEGATIVE); OCCULT BLOOD,URINE LARGE (NEGATIVE); PROTEIN,URINE SEE CONFIRM (NEGATIVE)
[2021-07-14 17:34] LABS: BACTERIA,URINE Few /HPF (None Seen); RBC,URINE >100 /HPF (0-2); SQUAMOUS EPITHELIAL CELL,UR Few /LPF (None Seen); SULFOSALICYLIC ACID,URINE 3+ (Negative); WBC,URINE 26-50 /HPF (0-5)
[2021-07-14] MEDS: MINOCYCLINE HCL 100 MG CAPSULE NG SCH (17:54)
[2021-07-14] MEDS: THIAMINE 500 MG in SODIUM CHLORIDE 0.9% 100 ML IV SCH (17:55)
[2021-07-14] MEDS: CefTRIAXone 1 GM/DEXTROSE 50 ML IV SCH (19:15)
[2021-07-14] MEDS: LOVASTATIN 20 MG TABLET NG SCH (20:11)
[2021-07-14] MEDS: SENNOSIDES 8.8 MG/5 ML SYRUP ORAL.SYG NG SCH (20:12)
[2021-07-14] MEDS: CycloSPORINE 0.05% 0.4 ML OPHTHALMIC EMULSION OU SCH (20:13)
[2021-07-15] VITALS: BP 149/72
[2021-07-15] MEDS: LEVOTHYROXINE SODIUM 88 MCG TABLET NG SCH (05:55)
[2021-07-15 08:00] VITALS: BP 148/71
[2021-07-15] MEDS: CALCIUM CIT/VITAMIN D3 200 MG-250 UNITS TABLET NG SCH (09:23)
[2021-07-15] MEDS: 0.9% SODIUM CHLORIDE 10 ML SYRINGE IVP SCH ×3 (09:23→23:32)
[2021-07-15] MEDS: RIVAROXABAN 20 MG TABLET NG SCH (09:23)
[2021-07-15] MEDS: FAMOTIDINE 20 MG TABLET NG SCH ×2 (09:23→20:19)
[2021-07-15] MEDS: MINOCYCLINE HCL 100 MG CAPSULE NG SCH ×2 (09:23→15:58)
[2021-07-15] MEDS: TAMSULOSIN HCL 0.4 MG CAPSULE NG SCH ×2 (09:23→20:18)
[2021-07-15] MEDS: ASCORBIC ACID 500 MG TABLET NG SCH (09:24)
[2021-07-15] MEDS: DOCUSATE SODIUM 100 MG/10 ML LIQUID UDCUP NG SCH ×2 (09:24→20:18)
[2021-07-15] MEDS: MULTIVITAMINS WITH MINERALS, THERAPEUTIC 15 ML UDCUP NG SCH (09:24)
[2021-07-15] MEDS: NYSTATIN 500,000 UNITS/5 ML SUSPENSION UDCUP NG SCH ×3 (09:24→23:32)
[2021-07-15] MEDS: ETHYL ALCOHOL 62% ANTISEPTIC NASAL INHALANT 0.6 ML AMPUL NASAL SCH ×2 (09:24→20:18)
[2021-07-15] MEDS: MODAFINIL 100 MG TABLET NG SCH (09:24)
[2021-07-15] MEDS: [UNRECOGNIZED DRUG - OTHER] OU SCH ×4 (09:24→20:19)
[2021-07-15 16:05] VITALS: BP 138/73
[2021-07-15] MEDS: THIAMINE 500 MG in SODIUM CHLORIDE 0.9% 100 ML IV SCH (17:19)
[2021-07-15] MEDS: CefTRIAXone 1 GM/DEXTROSE 50 ML IV SCH (18:00)
[2021-07-15] MEDS: DOCUSATE SODIUM 283 MG/5 ML MINI-ENEMA PR PRN (18:48)
[2021-07-15] MEDS: LOVASTATIN 20 MG TABLET NG SCH (20:19)
[2021-07-15] MEDS: CycloSPORINE 0.05% 0.4 ML OPHTHALMIC EMULSION OU SCH (20:20)
[2021-07-15] MEDS: SENNOSIDES 8.8 MG/5 ML SYRUP ORAL.SYG NG SCH (20:21)
[2021-07-16] VITALS: BP 128/70
[2021-07-16] MEDS: LEVOTHYROXINE SODIUM 88 MCG TABLET NG SCH (05:43)
[2021-07-16] MEDS: ASCORBIC ACID 500 MG TABLET NG SCH (08:58)
[2021-07-16] MEDS: TAMSULOSIN HCL 0.4 MG CAPSULE NG SCH ×2 (08:58→20:24)
[2021-07-16] MEDS: CALCIUM CIT/VITAMIN D3 200 MG-250 UNITS TABLET NG SCH (08:58)
[2021-07-16] MEDS: FAMOTIDINE 20 MG TABLET NG SCH ×2 (08:58→20:24)
[2021-07-16] MEDS: MODAFINIL 100 MG TABLET NG SCH (08:58)
[2021-07-16] MEDS: MULTIVITAMINS WITH MINERALS, THERAPEUTIC 15 ML UDCUP NG SCH (08:59)
[2021-07-16] MEDS: MINOCYCLINE HCL 100 MG CAPSULE NG SCH ×2 (08:59→17:43)
[2021-07-16] MEDS: [UNRECOGNIZED DRUG - OTHER] OU SCH ×4 (08:59→20:22)
[2021-07-16] MEDS: DOCUSATE SODIUM 100 MG/10 ML LIQUID UDCUP NG SCH ×2 (08:59→20:27)
[2021-07-16] MEDS: NYSTATIN 500,000 UNITS/5 ML SUSPENSION UDCUP NG SCH ×3 (08:59→23:03)
[2021-07-16] MEDS: 0.9% SODIUM CHLORIDE 10 ML SYRINGE IVP SCH ×3 (09:00→23:03)
[2021-07-16] MEDS: RIVAROXABAN 20 MG TABLET NG SCH (09:03)
[2021-07-16] MEDS: ETHYL ALCOHOL 62% ANTISEPTIC NASAL INHALANT 0.6 ML AMPUL NASAL SCH ×2 (09:03→20:28)
[2021-07-16 09:43] VITALS: BP 134/88
[2021-07-16 15:40] VITALS: BP 149/67
[2021-07-16] MEDS ORDERED: LIDOCAINE 1% 10 ML VIAL ID ONE (17:30)
[2021-07-16] MEDS: CefTRIAXone 1 GM/DEXTROSE 50 ML IV SCH (17:43)
[2021-07-16] MEDS ORDERED: SODIUM CHLORIDE 0.9% 100 ML ONE (17:45)
[2021-07-16] MEDS: CycloSPORINE 0.05% 0.4 ML OPHTHALMIC EMULSION OU SCH (20:25)
[2021-07-16] MEDS: SENNOSIDES 8.8 MG/5 ML SYRUP ORAL.SYG NG SCH (20:25)
[2021-07-16] MEDS: LOVASTATIN 20 MG TABLET NG SCH (20:25)
[2021-07-16 22:32] LABS: GLUCOSE, CSF 78 mg/dL (50-80); TOTAL PROTEIN, CSF 45 mg/dL (15-45)
[2021-07-16 23:25] LABS: APPEARANCE,CSF CLEAR (CLEAR); COLOR,CSF COLORLESS (COLORLESS); CSF TUBE NUMBER 1
[2021-07-16 23:26] LABS: APPEARANCE2,CSF CLEAR (CLEAR); COLOR2,CSF COLORLESS (COLORLESS); CSF 2ND TUBE NUMBER 4
[2021-07-17] VITALS: BP 132/81
[2021-07-17] MEDS: LEVOTHYROXINE SODIUM 88 MCG TABLET NG SCH (05:51)
[2021-07-17] MEDS: 0.9% SODIUM CHLORIDE 10 ML SYRINGE IVP SCH (08:33)
[2021-07-17] MEDS: MINOCYCLINE HCL 100 MG CAPSULE NG SCH (08:33)
[2021-07-17] MEDS: NYSTATIN 500,000 UNITS/5 ML SUSPENSION UDCUP NG SCH (08:34)
[2021-07-17] MEDS: ETHYL ALCOHOL 62% ANTISEPTIC NASAL INHALANT 0.6 ML AMPUL NASAL SCH (08:34)
[2021-07-17] MEDS: MULTIVITAMINS WITH MINERALS, THERAPEUTIC 15 ML UDCUP NG SCH (08:34)
[2021-07-17] MEDS: CALCIUM CIT/VITAMIN D3 200 MG-250 UNITS TABLET NG SCH (08:34)
[2021-07-17] MEDS: TAMSULOSIN HCL 0.4 MG CAPSULE NG SCH (08:35)
[2021-07-17] MEDS: DOCUSATE SODIUM 100 MG/10 ML LIQUID UDCUP NG SCH (08:35)
[2021-07-17] MEDS: FAMOTIDINE 20 MG TABLET NG SCH (08:36)
[2021-07-17] MEDS: MODAFINIL 100 MG TABLET NG SCH (08:36)
[2021-07-17] MEDS: ASCORBIC ACID 500 MG TABLET NG SCH (08:36)
[2021-07-17] MEDS: RIVAROXABAN 20 MG TABLET NG SCH (08:36)
[2021-07-17] MEDS: [UNRECOGNIZED DRUG - OTHER] OU SCH ×2 (08:38→12:38)
[2021-07-17 09:54] VITALS: BP 122/84
[2021-07-19 10:01] LABS: GLUCOMETER DEV NAME(LOC) 2WR.2B; GLUCOSE,POINT OF CARE 155 MG/DL (70-110)
[2021-07-24 16:06] LABS: RUBEOLA (MEASLES) IGG CSF <5.0 AU/mL (<=16.4); RUBEOLA (MEASLES) IGM CSF 0.12 AU (0.00-0.79); WEST NILE VIRUS IGG CSF 0.04 IV (<=1.29); WEST NILE VIRUS IGM CSF 0.04 IV (<=0.89)
== END 2021-07-17 14:36 | disposition short-term general hospital (02) | DRG 64 ==
LOC: 2WR 16:08
PROVIDERS: ADMIT Physical Medicine & Rehabilitation; ATTEND Physical Medicine & Rehabilitation
DX: I63.9 Cerebral infarction, unspecified (principal); G93.41 Metabolic encephalopathy; I26.99 Other pulmonary embolism without acute cor pulmonale; N39.0 Urinary tract infection, site not specified; I82.403 Acute embolism and thrombosis of unspecified deep veins of lower extremity, bilateral; F32.2 Major depressive disorder, single episode, severe without psychotic features; E44.0 Moderate protein-calorie malnutrition; B37.0 Candidal stomatitis; E03.9 Hypothyroidism, unspecified; R47.01 Aphasia; E78.00 Pure hypercholesterolemia, unspecified; E78.5 Hyperlipidemia, unspecified; G47.00 Insomnia, unspecified; I10 Essential (primary) hypertension; R32 Unspecified urinary incontinence; R13.10 Dysphagia, unspecified; K59.00 Constipation, unspecified; K21.9 Gastro-esophageal reflux disease without esophagitis; I25.10 Atherosclerotic heart disease of native coronary artery without angina pectoris; Z86.73 Personal history of transient ischemic attack (TIA), and cerebral infarction without residual deficits; Z86.718 Personal history of other venous thrombosis and embolism; Z86.711 Personal history of pulmonary embolism; Z79.01 Long term (current) use of anticoagulants; Z68.20 Body mass index [BMI] 20.0-20.9, adult
CPT/HCPCS: 70450; 70551; 70553; 74018; 80048; 80053; 81001; 81002; 82140; 82607; 82945; 82962; 84157; 84182; 84439; 84443; 85025; 86317; 86694; 86735; 86765; 86787; 86788; 86789; 87075; 87081; 87086; 87205; 87529; 89051; 92507; 92523; 92526; 93880; 97110; 97112; 97116; 97163; 97167; 97530; 97535; 99366; J0696; J3411; J3490; J7030; J7050; Q9967; 36415-L1; 36415-TC; 87070

== ENCOUNTER 2021-07-17 14:54 | Inpatient (IN) | payer MEDICARE, BC ==
[~2021-07-17] VITALS: Ht 175.3 cm; Wt 58.3 kg
[~2021-07-17 14:54] MED LIST: CYCL05OE OU; DOXE10 PO; LEVO88TA4 PO; LOVA20TA73 PO; MINO100C66 PO
[2021-07-17] MEDS ORDERED: BISACODYL 10 MG RECTAL RECTAL SUPPOSITORY PR PRN (16:00)
[2021-07-17] MEDS ORDERED: ONDANSETRON HCL 4 MG/2 ML VIAL IVP PRN (16:00)
[2021-07-17] MEDS ORDERED: ACETAMINOPHEN 325 MG TABLET NG PRN (16:00)
[2021-07-17 16:26] LABS: BASOPHILS % (AUTO) 0.5 % (0.0-2.0); EOSINOPHILS % (AUTO) 3.8 % (1.0-6.0); HEMATOCRIT 40.4 % (36-46); HEMOGLOBIN 13.6 g/dL (12.0-16.0); LYMPHOCYTES # (AUTO) 1.7 K/uL (1.0-4.8); LYMPHOCYTES % (AUTO) 20.5 % (22.0-44.0); MEAN CORPUSCULAR HEMOGLOBIN 30.6 pg (26.0-34.0); MEAN CORPUSCULAR HGB CONC 33.8 G/dL (31.0-37.0); MEAN CORPUSCULAR VOLUME 91 fL (80-100); MONOCYTES # (AUTO) 0.6 K/uL (0.1-1.0); MONOCYTES % (AUTO) 7.3 % (2.0-9.0); NEUTROPHILS # (AUTO) 5.7 K/uL (1.8-7.7); NEUTROPHILS % (AUTO) 67.9 % (40.0-70.0); PLATELET COUNT (AUTO) 291 K/uL (150-450); RED BLOOD CELL COUNT(AUTO) 4.46 MIL/uL (4.00-5.20); RED CELL DISTRIBUTION WIDTH 13.2 % (11.5-14.5)
[2021-07-17 16:58] LABS: ALANINE AMINOTRANSFERASE 36 U/L (12-78); ALBUMIN 2.8 g/dL (3.4-5.0); ALKALINE PHOSPHATASE 116 U/L (46-116); ANION GAP 5 mmol/L (8-16); ASPARTATE AMINOTRANSFERASE 35 U/L (15-37); BILIRUBIN,TOTAL 0.3 mg/dL (0.1-1.0); CALCIUM, TOTAL 9.5 mg/dL (8.8-10.5); CARBON DIOXIDE 33 mmol/L (22-29); CHLORIDE 103 mmol/L (98-107); CREATININE 0.64 mg/dL (0.60-1.30); GLOMERULAR FILTR. RATE CALC > 60 mL/min (>60); GLUCOSE,RANDOM 112 mg/dL (70-110); POTASSIUM 4.2 mmol/L (3.5-5.1); SODIUM SERUM 141 mmol/L (136-145); TOTAL PROTEIN, SERUM 6.5 g/dL (6.4-8.2); UREA NITROGEN, BLOOD 17 mg/dL (7-18)
[2021-07-17 17:43] VITALS: BP 148/78
[2021-07-17 20:21] VITALS: BP 118/59
[2021-07-17] MEDS: DOCUSATE SODIUM 100 MG/10 ML LIQUID UDCUP NG SCH (21:00)
[2021-07-17] MEDS: FAMOTIDINE 20 MG TABLET NG SCH (21:00)
[2021-07-17 23:45] VITALS: BP 118/85
[2021-07-18 05:07] VITALS: BP 149/73
[2021-07-18] MEDS: SODIUM CHLORIDE 0.45% 1,000 ML IV SCH ×2 (06:46→20:52)
[2021-07-18 07:18] LABS: BASOPHILS % (AUTO) 0.6 % (0.0-2.0); EOSINOPHILS % (AUTO) 4.5 % (1.0-6.0); HEMATOCRIT 40.5 % (36-46); HEMOGLOBIN 13.9 g/dL (12.0-16.0); LYMPHOCYTES # (AUTO) 1.7 K/uL (1.0-4.8); LYMPHOCYTES % (AUTO) 24.2 % (22.0-44.0); MEAN CORPUSCULAR HGB CONC 34.3 G/dL (31.0-37.0); MEAN CORPUSCULAR VOLUME 90 fL (80-100); MONOCYTES # (AUTO) 0.5 K/uL (0.1-1.0); MONOCYTES % (AUTO) 7.2 % (2.0-9.0); NEUTROPHILS # (AUTO) 4.4 K/uL (1.8-7.7); NEUTROPHILS % (AUTO) 63.5 % (40.0-70.0); PLATELET COUNT (AUTO) 278 K/uL (150-450); RED BLOOD CELL COUNT(AUTO) 4.47 MIL/uL (4.00-5.20); RED CELL DISTRIBUTION WIDTH 13.2 % (11.5-14.5)
[2021-07-18 07:43] LABS: ALANINE AMINOTRANSFERASE 36 U/L (12-78); ALBUMIN 2.9 g/dL (3.4-5.0); ALKALINE PHOSPHATASE 123 U/L (46-116); ANION GAP 5 mmol/L (8-16); ASPARTATE AMINOTRANSFERASE 34 U/L (15-37); BILIRUBIN,TOTAL 0.4 mg/dL (0.1-1.0); CALCIUM, TOTAL 9.7 mg/dL (8.8-10.5); CARBON DIOXIDE 34 mmol/L (22-29); CHLORIDE 102 mmol/L (98-107); CREATININE 0.65 mg/dL (0.60-1.30); GLOMERULAR FILTR. RATE CALC > 60 mL/min (>60); GLUCOSE,RANDOM 104 mg/dL (70-110); POTASSIUM 4.1 mmol/L (3.5-5.1); SODIUM SERUM 141 mmol/L (136-145); THYROID STIMULATING HORMONE 2.59 uIU/mL (0.36-3.74); TOTAL PROTEIN, SERUM 6.9 g/dL (6.4-8.2); UREA NITROGEN, BLOOD 19 mg/dL (7-18)
[2021-07-18 08:18] VITALS: BP 143/87
[2021-07-18] MEDS: FAMOTIDINE 20 MG TABLET NG SCH ×2 (09:51→20:52)
[2021-07-18] MEDS: LOVASTATIN 20 MG TABLET NG SCH (09:51)
[2021-07-18] MEDS: DOCUSATE SODIUM 100 MG/10 ML LIQUID UDCUP NG SCH ×2 (09:51→20:52)
[2021-07-18] MEDS: RIVAROXABAN 20 MG TABLET NG SCH (09:51)
[2021-07-18] MEDS ORDERED: INSULIN REGULAR, HUMAN 100 UNITS/ML SQ PRN (18:45)
[2021-07-18] MEDS ORDERED: DEXTROSE 50%-WATER 25 GM/50 ML SYRINGE IVP PRN (18:45)
[2021-07-18 20:14] VITALS: BP 159/89
[2021-07-19 00:22] VITALS: BP 145/78
[2021-07-19 05:11] LABS: GLUCOMETER DEV NAME(LOC) 5S.1B; GLUCOSE,POINT OF CARE 107 MG/DL (70-110)
[2021-07-19 05:36] VITALS: BP 138/86
[2021-07-19 08:45] LABS: GLUCOMETER DEV NAME(LOC) 5S.2B; GLUCOSE,POINT OF CARE 112 MG/DL (70-110)
[2021-07-19] MEDS: FAMOTIDINE 20 MG TABLET NG SCH ×2 (08:46→20:13)
[2021-07-19] MEDS: DOCUSATE SODIUM 100 MG/10 ML LIQUID UDCUP NG SCH ×2 (08:46→20:13)
[2021-07-19] MEDS: RIVAROXABAN 20 MG TABLET NG SCH (08:46)
[2021-07-19] MEDS: LOVASTATIN 20 MG TABLET NG SCH (08:46)
[2021-07-19 08:51] VITALS: BP 150/85
[2021-07-19 09:44] LABS: BASOPHILS % (AUTO) 0.5 % (0.0-2.0); EOSINOPHILS % (AUTO) 4.6 % (1.0-6.0); HEMATOCRIT 40.6 % (36-46); HEMOGLOBIN 13.6 g/dL (12.0-16.0); LYMPHOCYTES # (AUTO) 1.6 K/uL (1.0-4.8); LYMPHOCYTES % (AUTO) 21.4 % (22.0-44.0); MEAN CORPUSCULAR HEMOGLOBIN 30.6 pg (26.0-34.0); MEAN CORPUSCULAR HGB CONC 33.6 G/dL (31.0-37.0); MEAN CORPUSCULAR VOLUME 91 fL (80-100); MONOCYTES # (AUTO) 0.6 K/uL (0.1-1.0); MONOCYTES % (AUTO) 7.6 % (2.0-9.0); NEUTROPHILS # (AUTO) 4.8 K/uL (1.8-7.7); NEUTROPHILS % (AUTO) 65.9 % (40.0-70.0); PLATELET COUNT (AUTO) 294 K/uL (150-450); RED BLOOD CELL COUNT(AUTO) 4.46 MIL/uL (4.00-5.20); RED CELL DISTRIBUTION WIDTH 13.3 % (11.5-14.5)
[2021-07-19 10:15] LABS: ANION GAP 7 mmol/L (8-16); CALCIUM, TOTAL 9.4 mg/dL (8.8-10.5); CARBON DIOXIDE 32 mmol/L (22-29); CHLORIDE 103 mmol/L (98-107); CREATININE 0.69 mg/dL (0.60-1.30); GLOMERULAR FILTR. RATE CALC > 60 mL/min (>60); GLUCOSE,RANDOM 108 mg/dL (70-110); SODIUM SERUM 142 mmol/L (136-145); UREA NITROGEN, BLOOD 24 mg/dL (7-18)
[2021-07-19 13:54] VITALS: BP 147/81
[2021-07-19 16:46] VITALS: BP 119/75
[2021-07-19] MEDS: SODIUM CHLORIDE 0.45% 1,000 ML IV SCH (18:47)
[2021-07-19] MEDS: THIAMINE 100 MG/ML 2 ML VIAL IVP SCH (18:47)
[2021-07-19] MEDS: FOLIC ACID 1 MG TABLET PO SCH (20:13)
[2021-07-19 20:57] VITALS: BP 134/76
[2021-07-20] VITALS: BP 131/73
[2021-07-20] MEDS: SODIUM CHLORIDE 0.45% 1,000 ML IV SCH ×3 (00:28→21:35)
[2021-07-20 03:26] LABS: GLUCOMETER DEV NAME(LOC) 5S.1B; GLUCOSE,POINT OF CARE 115 MG/DL (70-110)
[2021-07-20 04:00] VITALS: BP 124/64
[2021-07-20 07:15] VITALS: BP 151/79
[2021-07-20 08:11] LABS: GLUCOMETER DEV NAME(LOC) 5S.2B; GLUCOSE,POINT OF CARE 121 MG/DL (70-110)
[2021-07-20 08:43] LABS: BASOPHILS % (AUTO) 0.4 % (0.0-2.0); EOSINOPHILS % (AUTO) 6.4 % (1.0-6.0); HEMATOCRIT 39.4 % (36-46); HEMOGLOBIN 13.4 g/dL (12.0-16.0); LYMPHOCYTES # (AUTO) 1.6 K/uL (1.0-4.8); LYMPHOCYTES % (AUTO) 23.2 % (22.0-44.0); MEAN CORPUSCULAR HEMOGLOBIN 30.9 pg (26.0-34.0); MEAN CORPUSCULAR HGB CONC 33.9 G/dL (31.0-37.0); MEAN CORPUSCULAR VOLUME 91 fL (80-100); MONOCYTES # (AUTO) 0.6 K/uL (0.1-1.0); MONOCYTES % (AUTO) 8.5 % (2.0-9.0); NEUTROPHILS # (AUTO) 4.3 K/uL (1.8-7.7); NEUTROPHILS % (AUTO) 61.5 % (40.0-70.0); PLATELET COUNT (AUTO) 266 K/uL (150-450); RED BLOOD CELL COUNT(AUTO) 4.32 MIL/uL (4.00-5.20); RED CELL DISTRIBUTION WIDTH 13.2 % (11.5-14.5)
[2021-07-20 08:59] LABS: ANION GAP 3 mmol/L (8-16); CALCIUM, TOTAL 8.9 mg/dL (8.8-10.5); CARBON DIOXIDE 31 mmol/L (22-29); CHLORIDE 101 mmol/L (98-107); CREATININE 0.66 mg/dL (0.60-1.30); GLUCOSE,RANDOM 124 mg/dL (70-110); POTASSIUM 4.1 mmol/L (3.5-5.1); SODIUM SERUM 135 mmol/L (136-145); UREA NITROGEN, BLOOD 23 mg/dL (7-18)
[2021-07-20 09:00] LABS: GLOMERULAR FILTR. RATE CALC > 60 mL/min (>60)
[2021-07-20] MEDS: RIVAROXABAN 20 MG TABLET NG SCH (09:06)
[2021-07-20] MEDS: THIAMINE 100 MG/ML 2 ML VIAL IVP SCH (09:06)
[2021-07-20] MEDS: FAMOTIDINE 20 MG TABLET NG SCH ×2 (09:06→21:34)
[2021-07-20] MEDS: FOLIC ACID 1 MG TABLET PO SCH ×2 (09:06→21:34)
[2021-07-20] MEDS: LOVASTATIN 20 MG TABLET NG SCH (09:06)
[2021-07-20] MEDS: DOCUSATE SODIUM 100 MG/10 ML LIQUID UDCUP NG SCH ×2 (09:06→21:34)
[2021-07-20 10:58] VITALS: BP 122/72
[2021-07-20] MEDS: ClonazePAM 0.5 MG TABLET NG SCH ×2 (12:44→21:34)
[2021-07-20] MEDS: ESCITALOPRAM OXALATE 10 MG TABLET NG SCH (12:44)
[2021-07-20 14:53] VITALS: BP 155/86
[2021-07-20 20:00] VITALS: BP 133/59
[2021-07-20 22:11] LABS: GLUCOMETER DEV NAME(LOC) 5S.1B; GLUCOSE,POINT OF CARE 120 MG/DL (70-110)
[2021-07-21] VITALS (7 sets, daily range): BP systolic 125–152; BP diastolic 55–80
[2021-07-21 02:01] LABS: GLUCOMETER DEV NAME(LOC) 5S.2B; GLUCOSE,POINT OF CARE 112 MG/DL (70-110)
[2021-07-21 06:36] LABS: GLUCOMETER DEV NAME(LOC) 5S.1B; GLUCOSE,POINT OF CARE 183 MG/DL (70-110)
[2021-07-21] MEDS: ESCITALOPRAM OXALATE 10 MG TABLET NG SCH (08:06)
[2021-07-21] MEDS: LOVASTATIN 20 MG TABLET NG SCH (08:06)
[2021-07-21] MEDS: RIVAROXABAN 20 MG TABLET NG SCH (08:06)
[2021-07-21] MEDS: DOCUSATE SODIUM 100 MG/10 ML LIQUID UDCUP NG SCH ×2 (08:06→20:40)
[2021-07-21] MEDS: FAMOTIDINE 20 MG TABLET NG SCH ×2 (08:06→20:40)
[2021-07-21] MEDS: FOLIC ACID 1 MG TABLET PO SCH ×2 (08:06→20:40)
[2021-07-21] MEDS: ClonazePAM 0.5 MG TABLET NG SCH ×2 (08:06→20:40)
[2021-07-21] MEDS: THIAMINE 100 MG/ML 2 ML VIAL IVP SCH (08:07)
[2021-07-21 08:46] LABS: BASOPHILS % (AUTO) 0.2 % (0.0-2.0); EOSINOPHILS % (AUTO) 4.4 % (1.0-6.0); HEMATOCRIT 38.8 % (36-46); HEMOGLOBIN 13.2 g/dL (12.0-16.0); LYMPHOCYTES # (AUTO) 1.2 K/uL (1.0-4.8); LYMPHOCYTES % (AUTO) 17.1 % (22.0-44.0); MEAN CORPUSCULAR HEMOGLOBIN 30.7 pg (26.0-34.0); MEAN CORPUSCULAR HGB CONC 33.9 G/dL (31.0-37.0); MEAN CORPUSCULAR VOLUME 91 fL (80-100); MONOCYTES # (AUTO) 0.5 K/uL (0.1-1.0); MONOCYTES % (AUTO) 6.6 % (2.0-9.0); NEUTROPHILS # (AUTO) 5.1 K/uL (1.8-7.7); NEUTROPHILS % (AUTO) 71.7 % (40.0-70.0); PLATELET COUNT (AUTO) 248 K/uL (150-450); RED BLOOD CELL COUNT(AUTO) 4.28 MIL/uL (4.00-5.20); RED CELL DISTRIBUTION WIDTH 12.9 % (11.5-14.5)
[2021-07-21 08:51] LABS: ANION GAP 4 mmol/L (8-16); CALCIUM, TOTAL 8.7 mg/dL (8.8-10.5); CARBON DIOXIDE 32 mmol/L (22-29); CHLORIDE 100 mmol/L (98-107); CREATININE 0.55 mg/dL (0.60-1.30); GLOMERULAR FILTR. RATE CALC > 60 mL/min (>60); GLUCOSE,RANDOM 146 mg/dL (70-110); POTASSIUM 4.2 mmol/L (3.5-5.1); SODIUM SERUM 136 mmol/L (136-145); UREA NITROGEN, BLOOD 17 mg/dL (7-18)
[2021-07-21] MEDS: SODIUM CHLORIDE 0.45% 1,000 ML IV SCH (16:19)
[2021-07-21 23:05] LABS: COVID AG,FIA SOURCE NASOPHARYNGEAL
[2021-07-22] MEDS: SODIUM CHLORIDE 0.45% 1,000 ML IV SCH ×2 (02:46→16:40)
[2021-07-22 03:30] VITALS: BP 145/74
[2021-07-22 06:22] LABS: GLUCOMETER DEV NAME(LOC) 5S.2B; GLUCOSE,POINT OF CARE 148 MG/DL (70-110)
[2021-07-22 09:37] VITALS: BP 183/73
[2021-07-22] MEDS: THIAMINE 100 MG/ML 2 ML VIAL IVP SCH (09:41)
[2021-07-22] MEDS: DOCUSATE SODIUM 100 MG/10 ML LIQUID UDCUP NG SCH ×2 (09:41→20:17)
[2021-07-22] MEDS: FOLIC ACID 1 MG TABLET PO SCH ×2 (09:41→20:18)
[2021-07-22] MEDS: LOVASTATIN 20 MG TABLET NG SCH (09:41)
[2021-07-22] MEDS: ClonazePAM 0.5 MG TABLET NG SCH (09:41)
[2021-07-22] MEDS: ESCITALOPRAM OXALATE 10 MG TABLET NG SCH (09:42)
[2021-07-22] MEDS: RIVAROXABAN 20 MG TABLET NG SCH (09:43)
[2021-07-22] MEDS: FAMOTIDINE 20 MG TABLET NG SCH ×2 (09:46→20:18)
[2021-07-22 15:06] LABS: GLUCOMETER DEV NAME(LOC) 5S.1B; GLUCOSE,POINT OF CARE 139 MG/DL (70-110)
[2021-07-22 19:15] VITALS: BP 156/93
[2021-07-22] MEDS: ClonazePAM 0.5 MG TABLET PO SCH (20:18)
[2021-07-22 21:46] LABS: GLUCOMETER DEV NAME(LOC) 5N.1C; GLUCOSE,POINT OF CARE 132 MG/DL (70-110)
[2021-07-23] VITALS (7 sets, daily range): BP systolic 116–167; BP diastolic 59–81
[2021-07-23] MEDS: SODIUM CHLORIDE 0.45% 1,000 ML IV SCH ×2 (05:25→18:59)
[2021-07-23 06:26] LABS: GLUCOMETER DEV NAME(LOC) 5N.1C; GLUCOSE,POINT OF CARE 144 MG/DL (70-110)
[2021-07-23] MEDS: DOCUSATE SODIUM 100 MG/10 ML LIQUID UDCUP NG SCH ×2 (08:28→21:02)
[2021-07-23] MEDS: ClonazePAM 0.5 MG TABLET PO SCH ×2 (08:28→21:02)
[2021-07-23] MEDS: RIVAROXABAN 20 MG TABLET NG SCH (08:28)
[2021-07-23] MEDS: FAMOTIDINE 20 MG TABLET NG SCH ×2 (08:28→21:02)
[2021-07-23] MEDS: LOVASTATIN 20 MG TABLET NG SCH (08:28)
[2021-07-23] MEDS: THIAMINE 100 MG/ML 2 ML VIAL IVP SCH (08:29)
[2021-07-23] MEDS: ESCITALOPRAM OXALATE 10 MG TABLET NG SCH (08:29)
[2021-07-23] MEDS: FOLIC ACID 1 MG TABLET PO SCH ×2 (08:29→21:02)
[2021-07-23 10:51] LABS: GLUCOMETER DEV NAME(LOC) 5S.2B; GLUCOSE,POINT OF CARE 126 MG/DL (70-110)
[2021-07-23 10:51] LABS: GLUCOMETER DEV NAME(LOC) 5S.1B; GLUCOSE,POINT OF CARE 111 MG/DL (70-110)
[2021-07-23 10:51] LABS: GLUCOMETER DEV NAME(LOC) 5S.1B; GLUCOSE,POINT OF CARE 125 MG/DL (70-110)
[2021-07-23 10:51] LABS: GLUCOMETER DEV NAME(LOC) 5S.1B; GLUCOSE,POINT OF CARE 110 MG/DL (70-110)
[2021-07-23 10:51] LABS: GLUCOMETER DEV NAME(LOC) 5S.2B; GLUCOSE,POINT OF CARE 122 MG/DL (70-110)
[2021-07-23 10:51] LABS: GLUCOMETER DEV NAME(LOC) 5S.1B; GLUCOSE,POINT OF CARE 137 MG/DL (70-110)
[2021-07-23 19:56] LABS: GLUCOMETER DEV NAME(LOC) 5N.1C; GLUCOSE,POINT OF CARE 135 MG/DL (70-110)
[2021-07-23 19:56] LABS: GLUCOMETER DEV NAME(LOC) 5N.1C; GLUCOSE,POINT OF CARE 116 MG/DL (70-110)
[2021-07-24 00:32] VITALS: BP 132/67
[2021-07-24 04:10] VITALS: BP 118/62
[2021-07-24] MEDS ORDERED: SODIUM CHLORIDE 0.9% 0 ML ONE (05:42)
[2021-07-24 07:11] LABS: GLUCOMETER DEV NAME(LOC) 5S.1B; GLUCOSE,POINT OF CARE 109 MG/DL (70-110)
[2021-07-24 07:11] LABS: GLUCOMETER DEV NAME(LOC) 5S.1B; GLUCOSE,POINT OF CARE 118 MG/DL (70-110)
[2021-07-24 08:38] VITALS: BP 131/66
[2021-07-24] MEDS: RIVAROXABAN 20 MG TABLET NG SCH (08:43)
[2021-07-24] MEDS: ClonazePAM 0.5 MG TABLET PO SCH ×2 (08:43→20:52)
[2021-07-24] MEDS: FAMOTIDINE 20 MG TABLET NG SCH ×2 (08:43→20:52)
[2021-07-24] MEDS: DOCUSATE SODIUM 100 MG/10 ML LIQUID UDCUP NG SCH ×2 (08:43→20:52)
[2021-07-24] MEDS: LOVASTATIN 20 MG TABLET NG SCH (08:43)
[2021-07-24] MEDS: FOLIC ACID 1 MG TABLET PO SCH ×2 (08:43→20:52)
[2021-07-24] MEDS: ESCITALOPRAM OXALATE 10 MG TABLET NG SCH (08:43)
[2021-07-24] MEDS: THIAMINE 100 MG/ML 2 ML VIAL IVP SCH (08:44)
[2021-07-24 09:06] LABS: BASOPHILS % (AUTO) 0.4 % (0.0-2.0); EOSINOPHILS % (AUTO) 5.2 % (1.0-6.0); HEMATOCRIT 37.9 % (36-46); HEMOGLOBIN 12.9 g/dL (12.0-16.0); LYMPHOCYTES # (AUTO) 1.4 K/uL (1.0-4.8); LYMPHOCYTES % (AUTO) 20.1 % (22.0-44.0); MEAN CORPUSCULAR HEMOGLOBIN 30.7 pg (26.0-34.0); MEAN CORPUSCULAR HGB CONC 33.9 G/dL (31.0-37.0); MEAN CORPUSCULAR VOLUME 90 fL (80-100); MONOCYTES # (AUTO) 0.5 K/uL (0.1-1.0); MONOCYTES % (AUTO) 6.5 % (2.0-9.0); NEUTROPHILS # (AUTO) 4.8 K/uL (1.8-7.7); NEUTROPHILS % (AUTO) 67.8 % (40.0-70.0); PLATELET COUNT (AUTO) 249 K/uL (150-450); RED BLOOD CELL COUNT(AUTO) 4.19 MIL/uL (4.00-5.20); RED CELL DISTRIBUTION WIDTH 13.1 % (11.5-14.5)
[2021-07-24 09:19] LABS: ANION GAP 4 mmol/L (8-16); CARBON DIOXIDE 31 mmol/L (22-29); CHLORIDE 97 mmol/L (98-107); CREATININE 0.42 mg/dL (0.60-1.30); GLOMERULAR FILTR. RATE CALC > 60 mL/min (>60); GLUCOSE,RANDOM 133 mg/dL (70-110); POTASSIUM 4.3 mmol/L (3.5-5.1); SODIUM SERUM 132 mmol/L (136-145); UREA NITROGEN, BLOOD 15 mg/dL (7-18)
[2021-07-24 12:44] VITALS: BP 118/57
[2021-07-24 13:11] LABS: GLUCOMETER DEV NAME(LOC) 5N.1C; GLUCOSE,POINT OF CARE 129 MG/DL (70-110)
[2021-07-24 16:13] VITALS: BP 126/74
[2021-07-24 17:41] LABS: GLUCOMETER DEV NAME(LOC) 5S.1B; GLUCOSE,POINT OF CARE 141 MG/DL (70-110)
[2021-07-24 20:24] VITALS: BP 111/68
[2021-07-24] MEDS: SODIUM CHLORIDE 0.45% 1,000 ML IV SCH (21:25)
[2021-07-25 00:27] VITALS: BP 120/65
[2021-07-25 04:20] VITALS: BP 129/57
[2021-07-25] MEDS: DOCUSATE SODIUM 100 MG/10 ML LIQUID UDCUP NG SCH (08:47)
[2021-07-25] MEDS: LOVASTATIN 20 MG TABLET NG SCH (08:48)
[2021-07-25 08:49] VITALS: BP 150/77
[2021-07-25] MEDS: ClonazePAM 0.5 MG TABLET PO SCH (08:49)
[2021-07-25] MEDS: THIAMINE 100 MG/ML 2 ML VIAL IVP SCH (08:49)
[2021-07-25] MEDS: RIVAROXABAN 20 MG TABLET NG SCH (08:49)
[2021-07-25] MEDS: ESCITALOPRAM OXALATE 10 MG TABLET NG SCH (08:50)
[2021-07-25] MEDS: FAMOTIDINE 20 MG TABLET NG SCH (08:51)
[2021-07-25] MEDS: FOLIC ACID 1 MG TABLET PO SCH (08:51)
[2021-07-25] MEDS: SODIUM CHLORIDE 0.45% 1,000 ML IV SCH ×2 (12:40→12:45)
[2021-07-25 13:07] VITALS: BP 133/67
[2021-07-25] MEDS ORDERED: CLON-595 PO (16:30)
[2021-07-25] MEDS ORDERED: ESCI-8 PO (16:31)
[2021-07-25] MEDS ORDERED: FOLI-130 PO ×2 (16:33)
[2021-07-25] MEDS ORDERED: LOVA20TA73 PO (16:34)
[2021-07-25] MEDS ORDERED: RIVA20TA PO (16:35)
[2021-07-25] MEDS ORDERED: ACET-2247 PO (16:36)
[2021-07-25 17:52] LABS: GLUCOMETER DEV NAME(LOC) 5S.1B; GLUCOSE,POINT OF CARE 124 MG/DL (70-110)
[2021-07-25 17:52] LABS: GLUCOMETER DEV NAME(LOC) 5S.1B; GLUCOSE,POINT OF CARE 130 MG/DL (70-110)
[2021-07-25 20:01] LABS: GLUCOMETER DEV NAME(LOC) 5N.1C; GLUCOSE,POINT OF CARE 128 MG/DL (70-110)
[2021-07-25] MEDS ORDERED: ClonazePAM 0.5 MG TABLET PO SCH (21:00)
[2021-08-02 12:16] LABS: GLUCOMETER DEV NAME(LOC) 5N.1C; GLUCOSE,POINT OF CARE 125 MG/DL (70-110)
== END 2021-07-25 19:00 | DRG 91 ==
LOC: EMS 14:58 → 5N 16:12
PROVIDERS: ADMIT Internal Medicine; ATTEND Internal Medicine
DX: G93.1 Anoxic brain damage, not elsewhere classified (principal); G92.8 Other toxic encephalopathy; E43 Unspecified severe protein-calorie malnutrition; N39.0 Urinary tract infection, site not specified; F11.23 Opioid dependence with withdrawal; I82.403 Acute embolism and thrombosis of unspecified deep veins of lower extremity, bilateral; G93.89 Other specified disorders of brain; R62.7 Adult failure to thrive; Z66 Do not resuscitate; E78.5 Hyperlipidemia, unspecified; E03.9 Hypothyroidism, unspecified; I25.10 Atherosclerotic heart disease of native coronary artery without angina pectoris; I10 Essential (primary) hypertension; F32.A Depression, unspecified; E78.00 Pure hypercholesterolemia, unspecified; K76.9 Liver disease, unspecified; Z20.822 Contact with and (suspected) exposure to COVID-19; Z51.5 Encounter for palliative care; Z86.73 Personal history of transient ischemic attack (TIA), and cerebral infarction without residual deficits; Z79.01 Long term (current) use of anticoagulants; Z68.22 Body mass index [BMI] 22.0-22.9, adult; Z79.899 Other long term (current) drug therapy
CPT/HCPCS: 70450; 74018; 80048; 80053; 82140; 82962; 84443; 85025; 87081; 87086; 99285; J3411; J7030; 36415-L1; 36415-TC